=== PATIENT | female | born 1960 | race Caucasian/White ===

== ENCOUNTER 2017-06-22 12:17 | Inpatient (IN) | payer BC ==
[~2017-06-22] VITALS: Ht 157.5 cm; Wt 50.0 kg
[2017-06-22 13:15] LABS: EOSINOPHIL (%) 0 % (0-5); HEMATOCRIT 44.5 % (36.0-46.0); IMMATURE GRANULOCYTE (%) 0.5 % (0.0-0.7); IMMATURE GRANULOCYTE COUNT 0.1 K/uL; INSTRUMENT ABS NEUTROPHIL CT 11.7 K/uL; LYMPHOCYTE COUNT 0.4 K/uL (1.0-2.8); MCH 31.5 PG (29.0-34.0); MCV 95.5 FL (83-99); MEAN PLAT.VOLUME 9.9 uM^3 (9.5-12.4); MONOCYTE (%) 3.5 % (3-12); MONOCYTE COUNT 0.5 K/uL (0-0.8); NEUTROPHIL (%) 92.4 % (45-76); NEUTROPHIL COUNT 11.7 K/uL (1.8-6.4); PLATELET COUNT 234 K/uL (156-360); RBC DIS.WIDTH-CV 14.2 % (11.8-14.6); RED BLOOD COUNT 4.66 M/uL (3.80-5.20); WHITE BLOOD COUNT 12.7 K/uL (4.1-10.2)
[2017-06-22 13:25] LABS: CHLORIDE 98 mEq/L (99-109); POTASSIUM 3.4 mEq/L (3.7-5.4)
[2017-06-22 13:26] LABS: SODIUM 137 mEq/L (136-147)
[2017-06-22 13:28] LABS: GLUCOSE 148 mg/dL (70-99)
[2017-06-22 13:29] LABS: ANION GAP 13 MEQ/L (2-14)
[2017-06-22 13:31] LABS: ALKALINE PHOSPHATASE 92 IU/L (3-129); GFR ESTIMATE (CALCULATED) > 59 mL/min/
[2017-06-22 13:33] LABS: UREA NITROGEN (BUN) 11 mg/dL (9-23)
[2017-06-22 20:10] VITALS: BP 119/84
[2017-06-22 20:30] VITALS: BP 119/84
[2017-06-23] VITALS (7 sets, daily range): BP systolic 104–135; BP diastolic 63–71
[2017-06-23 07:20] LABS: HEMATOCRIT 33.8 % (36.0-46.0); MCH 32.9 PG (29.0-34.0); MCHC 33.4 G/DL (30.0-36.0); MCV 98.5 FL (83-99); MEAN PLAT.VOLUME 10.3 uM^3 (9.5-12.4); PLATELET COUNT 183 K/uL (156-360); RBC DIS.WIDTH-CV 14.5 % (11.8-14.6); RBC DIS.WIDTH-SD 52.5 % (39-53); WHITE BLOOD COUNT 7.6 K/uL (4.1-10.2)
[2017-06-23 07:21] LABS: RED BLOOD COUNT 3.43 M/uL (3.80-5.20)
[2017-06-23 07:39] LABS: ANION GAP 7 MEQ/L (2-14); CHLORIDE 103 MEQ/L (99-109); GFR ESTIMATE (CALCULATED) > 59 mL/min/; GLUCOSE 116 mg/dL (70-99); SAMPLE HEMOLYSIS CHECK 0; SAMPLE ICTERIC CHECK 0; SAMPLE LIPEMIA CHECK 0; SODIUM 138 MEQ/L (136-147); UREA NITROGEN (BUN) 9 mg/dL (9-23)
[2017-06-23 07:40] LABS: POTASSIUM 4.2 MEQ/L (3.7-5.4)
[2017-06-23] MEDS ORDERED: RANITIDINE HCL300 MG PO (18:20)
[2017-06-23] MEDS ORDERED: OMEPRAZOLE40 M1 PO (18:21)
[2017-06-23] MEDS ORDERED: VALTREX50 MG/ML PO (18:22)
[2017-06-23] MEDS ORDERED: WELLBUTRIN XL150 MG PO (18:22)
[2017-06-23] MEDS ORDERED: B-121000 MC2 PO (18:23)
[2017-06-23] MEDS ORDERED: SIMILASAN BOTH EYES (18:26)
[2017-06-23] MEDS ORDERED: PREMARIN VAGI42.5 GM VG (18:28)
[2017-06-24 03:51] VITALS: BP 122/68
[2017-06-24 06:37] LABS: HEMATOCRIT 29.7 % (36.0-46.0); MCH 31.9 PG (29.0-34.0); MCHC 31.6 G/DL (30.0-36.0); MCV 100.7 FL (83-99); MEAN PLAT.VOLUME 10.1 uM^3 (9.5-12.4); PLATELET COUNT 167 K/uL (156-360); RBC DIS.WIDTH-CV 14.9 % (11.8-14.6); RBC DIS.WIDTH-SD 55.1 % (39-53); RED BLOOD COUNT 2.95 M/uL (3.80-5.20); WHITE BLOOD COUNT 6.3 K/uL (4.1-10.2)
[2017-06-24 07:02] LABS: ANION GAP 4 MEQ/L (2-14); CHLORIDE 108 MEQ/L (99-109); GFR ESTIMATE (CALCULATED) > 59 mL/min/; GLUCOSE 103 mg/dL (70-99); POTASSIUM 4.4 MEQ/L (3.7-5.4); SAMPLE HEMOLYSIS CHECK 0; SAMPLE ICTERIC CHECK 0; SAMPLE LIPEMIA CHECK 0; SODIUM 140 MEQ/L (136-147); UREA NITROGEN (BUN) 8 mg/dL (9-23)
[2017-06-24 08:33] VITALS: BP 142/83
[2017-06-24 11:57] VITALS: BP 146/78
[2017-06-24 16:11] VITALS: BP 155/74
[2017-06-24 20:07] VITALS: BP 137/80
[2017-06-24 23:19] VITALS: BP 132/73
[2017-06-25 04:03] VITALS: BP 165/85
[2017-06-25 07:28] LABS: HEMATOCRIT 32.8 % (36.0-46.0); MCH 32.3 PG (29.0-34.0); MCHC 32.6 G/DL (30.0-36.0); MCV 99.1 FL (83-99); PLATELET COUNT 247 K/uL (156-360); RBC DIS.WIDTH-CV 14.6 % (11.8-14.6); RBC DIS.WIDTH-SD 53.8 % (39-53); RED BLOOD COUNT 3.31 M/uL (3.80-5.20); WHITE BLOOD COUNT 6.5 K/uL (4.1-10.2)
[2017-06-25 07:40] LABS: ANION GAP 7 MEQ/L (2-14); CHLORIDE 104 MEQ/L (99-109); GFR ESTIMATE (CALCULATED) > 59 mL/min/; GLUCOSE 92 mg/dL (70-99); POTASSIUM 4.5 MEQ/L (3.7-5.4); SAMPLE HEMOLYSIS CHECK 1; SAMPLE ICTERIC CHECK 0; SAMPLE LIPEMIA CHECK 0; SODIUM 140 MEQ/L (136-147); UREA NITROGEN (BUN) 4 mg/dL (9-23)
[2017-06-25 08:39] VITALS: BP 152/73
[2017-06-25 11:41] VITALS: BP 141/72
[2017-06-25 16:11] VITALS: BP 144/78
[2017-06-25 20:16] VITALS: BP 141/80
[2017-06-25 23:21] VITALS: BP 162/88
[2017-06-26] VITALS (7 sets, daily range): BP systolic 125–159; BP diastolic 70–81
[2017-06-26 07:04] LABS: MCH 31.9 PG (29.0-34.0); MCHC 32.8 G/DL (30.0-36.0); MCV 97.3 FL (83-99); MEAN PLAT.VOLUME 9.5 uM^3 (9.5-12.4); NRBC (%) 0.4 /100 WBC (0-0); PLATELET COUNT 279 K/uL (156-360); RBC DIS.WIDTH-CV 14.5 % (11.8-14.6); RED BLOOD COUNT 3.29 M/uL (3.80-5.20); WHITE BLOOD COUNT 6.9 K/uL (4.1-10.2)
[2017-06-26 07:50] LABS: ANION GAP 8 MEQ/L (2-14); CHLORIDE 105 MEQ/L (99-109); GFR ESTIMATE (CALCULATED) > 59 mL/min/; GLUCOSE 95 mg/dL (70-99); POTASSIUM 4.5 MEQ/L (3.7-5.4); SAMPLE HEMOLYSIS CHECK 0; SAMPLE ICTERIC CHECK 0; SAMPLE LIPEMIA CHECK 0; SODIUM 141 MEQ/L (136-147); UREA NITROGEN (BUN) 6 mg/dL (9-23)
[2017-06-27 02:43] VITALS: BP 147/81
[2017-06-27 06:57] LABS: HEMATOCRIT 32.8 % (36.0-46.0); MCV 96.8 FL (83-99); MEAN PLAT.VOLUME 9.5 uM^3 (9.5-12.4); NRBC (%) 0.4 /100 WBC (0-0); PLATELET COUNT 319 K/uL (156-360); RBC DIS.WIDTH-CV 14.6 % (11.8-14.6); RBC DIS.WIDTH-SD 52.1 % (39-53); RED BLOOD COUNT 3.39 M/uL (3.80-5.20)
[2017-06-27 07:24] LABS: ANION GAP 8 MEQ/L (2-14); CHLORIDE 104 MEQ/L (99-109); GFR ESTIMATE (CALCULATED) > 59 mL/min/; GLUCOSE 95 mg/dL (70-99); POTASSIUM 4.1 MEQ/L (3.7-5.4); SAMPLE HEMOLYSIS CHECK 0; SAMPLE ICTERIC CHECK 0; SAMPLE LIPEMIA CHECK 0; SODIUM 141 MEQ/L (136-147); UREA NITROGEN (BUN) 7 mg/dL (9-23)
[2017-06-27 08:05] VITALS: BP 125/76
[2017-06-27 11:51] VITALS: BP 118/67
[2017-06-27] MEDS ORDERED: METRONIDAZOLE500 MG PO (13:17)
[2017-06-27] MEDS ORDERED: OXYCODONE HCL5 MG PO (13:17)
[2017-06-27] MEDS ORDERED: CEPHALEXIN500 M1 PO (13:17)
== END 2017-06-27 15:17 | disposition home or self-care (01) | DRG 329 ==
LOC: EME 12:17 → SDC 14:10 → 2SOUTH 16:45 → 3EAST 16:45 → ENRESERV 16:48 → 3EAST 20:01
PROVIDERS: Physician Assistant; Surgery
PROC: 0DTH0ZZ Resection of Cecum, Open Approach (ICD-10-PCS; principal; 2017-06-22)
PROC: 0W9J00Z Drainage of Pelvic Cavity with Drainage Device, Open Approach (ICD-10-PCS; principal; 2017-06-22)
PROC: 0DJD4ZZ Inspection of Lower Intestinal Tract, Percutaneous Endoscopic Approach (ICD-10-PCS; principal; 2017-06-22)
PROC: 0DTJ0ZZ Resection of Appendix, Open Approach (ICD-10-PCS; principal; 2017-06-22)
PROC: 3E1M38Z Irrigation of Peritoneal Cavity using Irrigating Substance, Percutaneous Approach (ICD-10-PCS; principal; 2017-06-22)
DX: K35.2 Acute appendicitis with generalized peritonitis (principal); K65.8 Other peritonitis; I96 Gangrene, not elsewhere classified; F33.9 Major depressive disorder, recurrent, unspecified; F41.9 Anxiety disorder, unspecified; K21.9 Gastro-esophageal reflux disease without esophagitis; K66.0 Peritoneal adhesions (postprocedural) (postinfection); N73.6 Female pelvic peritoneal adhesions (postinfective); Z87.891 Personal history of nicotine dependence
CPT/HCPCS: 71020; 74000; 80048; 80053; 81003; 85025; 85027; 86900; 86901; 87070; 87075; 87077; 87186; 87205; 88304; 93005; 94760; 94799; 99281; 99285; C9113; J0330; J1100; J1170; J1650; J1885; J2250; J2405; J2543; J3010; J7030; J7050; J7120

== ENCOUNTER 2017-06-29 12:24 | Inpatient (IN) | payer BC ==
[~2017-06-29] VITALS: Ht 157.5 cm; Wt 73.0 kg
[~2017-06-29 12:24] MED LIST: B-121000 MC2 PO; CEPHALEXIN500 M1 PO; METRONIDAZOLE500 MG PO; OMEPRAZOLE40 M1 PO; OXYCODONE HCL5 MG PO; PREMARIN VAGI42.5 GM VG; RANITIDINE HCL300 MG PO; SIMILASAN BOTH EYES; VALTREX50 MG/ML PO; WELLBUTRIN XL150 MG PO
[2017-06-29 15:52] VITALS: BP 161/80
[2017-06-29 18:07] LABS: HEMATOCRIT 35.1 % (36.0-46.0); MCH 31.6 PG (29.0-34.0); MCHC 32.2 G/DL (30.0-36.0); MEAN PLAT.VOLUME 9.2 uM^3 (9.5-12.4); PLATELET COUNT 441 K/uL (156-360); RBC DIS.WIDTH-CV 14.5 % (11.8-14.6); RBC DIS.WIDTH-SD 52.3 % (39-53); RED BLOOD COUNT 3.58 M/uL (3.80-5.20)
[2017-06-29 18:25] LABS: ANION GAP 7 MEQ/L (2-14); CHLORIDE 104 MEQ/L (99-109); GFR ESTIMATE (CALCULATED) > 59 mL/min/; GLUCOSE 109 mg/dL (70-99); SAMPLE HEMOLYSIS CHECK 0; SAMPLE ICTERIC CHECK 0; SAMPLE LIPEMIA CHECK 0; SODIUM 137 MEQ/L (136-147); UREA NITROGEN (BUN) 13 mg/dL (9-23)
[2017-06-29 19:14] VITALS: BP 120/70
[2017-06-29 23:47] VITALS: BP 128/74
[2017-06-30 03:46] VITALS: BP 130/68
[2017-06-30 06:22] LABS: HEMATOCRIT 34.5 % (36.0-46.0); MCH 31.9 PG (29.0-34.0); MCHC 32.5 G/DL (30.0-36.0); MCV 98.3 FL (83-99); MEAN PLAT.VOLUME 9.2 uM^3 (9.5-12.4); PLATELET COUNT 405 K/uL (156-360); RBC DIS.WIDTH-CV 14.6 % (11.8-14.6); RED BLOOD COUNT 3.51 M/uL (3.80-5.20); WHITE BLOOD COUNT 7.4 K/uL (4.1-10.2)
[2017-06-30 06:51] LABS: ANION GAP 9 MEQ/L (2-14); CHLORIDE 107 MEQ/L (99-109); GFR ESTIMATE (CALCULATED) > 59 mL/min/; GLUCOSE 93 mg/dL (70-99); POTASSIUM 4.3 MEQ/L (3.7-5.4); SAMPLE HEMOLYSIS CHECK 0; SAMPLE ICTERIC CHECK 0; SAMPLE LIPEMIA CHECK 0; SODIUM 141 MEQ/L (136-147); UREA NITROGEN (BUN) 14 mg/dL (9-23)
[2017-06-30 08:00] VITALS: BP 114/69
[2017-06-30 12:30] VITALS: BP 120/67
[2017-06-30 15:40] VITALS: BP 128/71
[2017-06-30 20:04] VITALS: BP 136/73
[2017-06-30 23:31] VITALS: BP 136/71
[2017-07-01 03:43] VITALS: BP 124/72
[2017-07-01 07:45] VITALS: BP 118/73
[2017-07-01 15:27] VITALS: BP 142/78
[2017-07-01 23:46] VITALS: BP 125/72
[2017-07-02 05:41] LABS: C DIFF TOXIN NEGATIVE (NEGATIVE)
[2017-07-02 05:42] LABS: PROBE CHECK PASS; SPECIMEN PROCESSING CONTROL PASS
[2017-07-02 06:35] VITALS: BP 125/78
[2017-07-02 07:20] LABS: EOSINOPHIL (%) 1.6 % (0-5); EOSINOPHIL COUNT 0.1 K/uL (0-0.3); HEMATOCRIT 37.2 % (36.0-46.0); IMMATURE GRANULOCYTE (%) 1.2 % (0.0-0.7); IMMATURE GRANULOCYTE COUNT 0.1 K/uL; INSTRUMENT ABS NEUTROPHIL CT 6.2 K/uL; LYMPHOCYTE COUNT 1.6 K/uL (1.0-2.8); MCH 31.1 PG (29.0-34.0); MCHC 31.7 G/DL (30.0-36.0); MCV 97.9 FL (83-99); MEAN PLAT.VOLUME 9.3 uM^3 (9.5-12.4); MONOCYTE (%) 5.7 % (3-12); MONOCYTE COUNT 0.5 K/uL (0-0.8); NEUTROPHIL COUNT 6.2 K/uL (1.8-6.4); PLATELET COUNT 453 K/uL (156-360); RBC DIS.WIDTH-CV 14.2 % (11.8-14.6); RBC DIS.WIDTH-SD 51.1 % (39-53); WHITE BLOOD COUNT 8.5 K/uL (4.1-10.2)
[2017-07-02 07:50] LABS: ANION GAP 8 MEQ/L (2-14); CHLORIDE 104 MEQ/L (99-109); GFR ESTIMATE (CALCULATED) > 59 mL/min/; GLUCOSE 86 mg/dL (70-99); POTASSIUM 4.3 MEQ/L (3.7-5.4); SAMPLE HEMOLYSIS CHECK 0; SAMPLE ICTERIC CHECK 0; SAMPLE LIPEMIA CHECK 0; SODIUM 140 MEQ/L (136-147); UREA NITROGEN (BUN) 15 mg/dL (9-23)
[2017-07-02] MEDS ORDERED: LEVAQUIN750 MG PO (11:57)
== END 2017-07-02 14:47 | disposition home or self-care (01) | DRG 863 ==
LOC: AMB 12:24 → 2EAST 14:45
PROVIDERS: Surgery
DX: T81.4XXA Infection following a procedure, initial encounter (principal); B96.20 Unspecified Escherichia coli [E. coli] as the cause of diseases classified elsewhere; Y83.6 Removal of other organ (partial) (total) as the cause of abnormal reaction of the patient, or of later complication, without mention of misadventure at the time of the procedure; L03.311 Cellulitis of abdominal wall; F10.10 Alcohol abuse, uncomplicated; K21.9 Gastro-esophageal reflux disease without esophagitis; F32.9 Major depressive disorder, single episode, unspecified; F41.9 Anxiety disorder, unspecified; Z87.891 Personal history of nicotine dependence; Z88.2 Allergy status to sulfonamides
CPT/HCPCS: 80048; 85025; 85027; 87070; 87075; 87077; 87186; 87205; 87493; 99213; J1650; J2405; J2543; J7050

== ENCOUNTER → 2017-07-06 | Outpatient (CLI) | payer BC ==
[~2017-07-06] MED LIST changes: +LEVAQUIN750 MG PO
== END | disposition home or self-care (01) ==
LOC: AMB 13:32
DX: T81.4XXD Infection following a procedure, subsequent encounter (principal); B96.20 Unspecified Escherichia coli [E. coli] as the cause of diseases classified elsewhere; Z90.49 Acquired absence of other specified parts of digestive tract